=== PATIENT | male | born 1990 | race Caucasian/White ===

== ENCOUNTER 2018-07-30 16:27 | Emergency (ER) | payer OTHER ==
[~2018-07-30] VITALS: Ht 188 cm; Wt 108.9 kg
--- OUTSIDE RECORDS SUMMARY | ~2018-07-30 | XMS | Clinical Summary ---
Demographics + + + | Address | [address] | | | [address] | | | [place] [address] | + + + | Home Phone | | + + + | Preferred Language | Unknown | + + + | Marital Status | Single | + + + | Denominational Affiliation | Unknown | + + + | Race | Unknown | + + + | Ethnic Group | Unknown | + + + Author + + + | Author | [facility] | | | and [place] | + + + | Organization | [facility] | | | and [place] | + + + | Address | Unknown | + + + | Phone | Unavailable | + + + Support + + + + + | Name | Relationship | Address | Phone | + + + + + | None,Per Patient | ECON | 05/14/13 | Unavailable | | | | NA, | | + + + + + Care Team Providers + +------+ + | Care Director Of Manufacturing Operations Name | Role | Phone | + +------+ + PP | Unavailable | + +------+ + Allergies Not on File Current Medications Not on file Active Problems Not on file Social History + +-------+ +--------+------+ | Tobacco Use | Types | Packs/Day | Years | Date | | | | | Used | | + +-------+ +--------+------+ | Never Assessed | | | | | + +-------+ +--------+------+ + + + | Sex Assigned at | Date Recorded | | | | + + + | Not on file | | + + + Plan of Treatment + + + + + | Health Maintenance | Due Date | Last Done | Comments | + + + + + | Vaccine: | | | | | Dtap/Tdap/Td (1 - | 7 | | | | Tdap) | | | | + + + + + | Vaccine: Influenza | | | | | (#1) | 8 | | | + + + + + Results Not on filefrom Last 3 Months Insurance + +--------+ +--------+-------+---------+ | Payer | Benefi | Subscriber | Type | Phone | Address | | | t Plan | ID | | | | | | / | | | | | | | Group | | | | | + +--------+ +--------+-------+---------+ | GOVERNMENT OTHER | GOVERN | [id number] | Indemn | | | | | MENT | | ity | | | | | OTHER | | | | | + +--------+ +--------+-------+---------+ + +--------+ +--------+ + + | Guarantor Name | Accoun | Relation to | Date | Phone | Billing Address | | | t Type | Patient | of | | | | | | | | | | + +--------+ +--------+ + + | MAGGIE TIWARI | Person | Self | [birth year] | Work: | [address] | | | al/Fam | | 1989 | [phone] | [address] [place], | | | [place] | | | [address]: | [place] [address] | | | | | | | | | | | | | [phone] | | | | | | | [phone] | | + +--------+ +--------+ + +"
--- OUTSIDE RECORDS SUMMARY | ~2018-07-30 | XMS | Clinical Summary ---
Demographics + + + | Address | [address] | | | [address] | | | [place] [address] | + + + | Home Phone | | + + + | Preferred Language | Unknown | + + + | Marital Status | Single | + + + | Confucianist Affiliation | Unknown | + + + | Race | Unknown | + + + | Ethnic Group | Unknown | + + + Author + + + | Author | [facility] | | | and [place] | + + + | Organization | [facility] | | | and [...] Team Providers + +------+ + | Care Insole Stiffener Name | Role | Phone | + [...] +--------+-------+---------+ | GOVERNMENT OTHER | GOVERN | [id number] | Indemn | | | | | [...] | | | [address]: | [place] [address] | | | | | | | | | | | | | [phone] | | | | | | | [phone] | | + +--------+ +--------+ + +"
[~2018-07-30 16:27] MED LIST: TYLENOL325 MG PO
[2018-07-30] MEDS ORDERED: PANTOPRAZOLE SO40 MG PO (16:39)
[2018-07-30] MEDS ORDERED: CYCLOBENZAPRINE5 MG PO (17:29)
[2018-07-30] MEDS ORDERED: IBUPROFEN600 MG PO (17:29)
== END 2018-07-30 18:19 | disposition home or self-care (01) ==
LOC: ED 16:27
DX: S16.1XXA Strain of muscle, fascia and tendon at neck level, initial encounter (principal); W18.30XA Fall on same level, unspecified, initial encounter; Z79.899 Other long term (current) drug therapy
CPT/HCPCS: 72040; 99283

== ENCOUNTER 2022-03-16 05:53 | Day surgery (SDC) | payer OTHER ==
[~2022-03-16] VITALS: Ht 193 cm; Wt 127.3 kg
[~2022-03-16 05:53] MED LIST changes: +CYCLOBENZAPRINE5 MG PO; +FLOMAX0.4 MG PO; +IBUPROFEN200 MG; +IBUPROFEN600 MG PO; +NORCO 7.5-3251 EACH PO; +ONDANSETRON ODT8 MG PO; +PANTOPRAZOLE SO40 MG PO; +PEPCID40 MG PO
--- NOTE | 2022-03-16 11:33 | OR ---
[facility] [address] [place], [place] [address] Signed DATE OF OPERATION: 03/16/2022 SURGEON: Kushal Porter MD PREOPERATIVE DIAGNOSES: 1. Mid esophageal dysphagia. 2. Acid reflux and heartburn. 3. Hiatal hernia. 4. Diarrhea. 5. History of alcohol and NSAID use. POSTOPERATIVE DIAGNOSES: 1. Small to moderate sized hiatal hernia (43-39 cm). 2. GE junction at 39 cm. 3. Mild diffuse gastritis. PROCEDURES: EGD with CLOtest and biopsies of the duodenum, pyloric bulb, antrum and GE junction. INDICATIONS: Maggie is a 32-year-old gentleman asked to see me for his upper endoscopy. He said he has had trouble with acid reflux and heartburn for many years. Apparently, he has a hiatal hernia. He has tried Nexium and Prilosec without much help. He is now on Protonix with Pepcid. He cut his alcohol way down. He does have chronic low back pain for which he uses ibuprofen 800 mg twice each day. He has developed mid esophageal dysphagia to solid foods. He has to drink to push the food down. He did have some bloody diarrhea while in the . He remembers undergoing flexible sigmoidoscopy in 2011 and said it was absolutely horrible. He has been for a sleep study with concerns of sleep apnea. He is also a very large man with a full face and heavy chest. He has also had significant posttraumatic stress disorder. Therefore, we asked for monitored anesthesia care, which worked out very nicely for him today. We also send him for a barium swallow. The esophagus is normal in caliber with normal peristalsis. There are no strictures or any extrinsic compressions on the esophagus. He does have moderate to severe reflux during the test. He has a small sliding-type hiatal hernia. His GE junction is patent. In the office, I had given him a pamphlet on upper endoscopy. We reviewed that together in detail. He understands there is risk including, but not limited to gas bloating, crampy abdominal pain, bleeding, perforation requiring surgery, and missed diagnosis. He had expressed understanding and wished to proceed. PROCEDURE NOTE: Electronically Signed By: KUSHAL PORTER MD 03/16/22 1133 PATIENT NAME: MAGGIE TIWARI OPERATIVE REPORT DATE OF : 86 REPORT #: [id number] PHYSICIAN: KUSHAL PORTER MD PCP: SCOOTER KENYON MD REPORT IS CONFIDENTIAL AND NOT TO BE RELEASED WITHOUT AUTHORIZATION [facility] [address] [place], [place] [address] Signed Maggie was taken into our endoscopy suite and placed in the supine semi-recumbent position. He was given monitored anesthesia care to include propofol by our nurse mission coordinator. A bite block was utilized for the case. The adult gastroscope had been introduced and advanced quite readily out into the third portion of the duodenum without difficulty. We took a biopsy of the duodenum because of the history of diarrhea. However, the duodenum and pyloric channel were unremarkable. We took an additional biopsy of the pyloric channel for pathologic review. His stomach showed mild diffuse erythematous changes throughout. We took a biopsy of the antrum for pathologic review as well as CLOtest. Upon retroflexion of the scope, we could easily see his small to moderate sized hiatal hernia. It measured out from 43 cm back to 39 cm. There was no gastric or esophageal varices. There was no stricture. No Meryl-Tracy tear. No Jareth's ulcer. He does have some irritation around the Z-line. We went ahead and took a biopsy in that area. He has no Colon's mucosa. The distal, middle and upper esophagus were unremarkable. After this, the gas was suctioned out and the gastroscope removed. Maggie tolerated the procedure quite well. RECOMMENDATIONS: I will see Maggie back in my office in 7 to 14 days to review his results. If he wants to evaluate this further, he would need 24-hour pH testing and esophageal manometry not available in our area. Kushal Porter MD ALB/MODL /[id number] cc: MD Scooter Martino MD Copies: KUSHAL PORTER MD, MICAIAH MATTHEW MD ~ Electronically Signed By: KUSHAL PORTER MD 03/16/22 1133 PATIENT NAME: MAGGIE TIWARI OPERATIVE REPORT DATE OF : 86 REPORT #: [id number] PHYSICIAN: KUSHAL PORTER MD PCP: SCOOTER KENYON MD REPORT IS CONFIDENTIAL AND NOT TO BE RELEASED WITHOUT AUTHORIZATION
--- NOTE | 2022-03-20 14:51 | PATH ---
[facility] [address] [place], [place] [address] Signed SPECIMEN(S): A DUODENAL BIOPSY SPECIMEN(S): B DUODENAL BULB BIOPSY SPECIMEN(S): C ANTRUM/PYLORUS BIOPSY SPECIMEN(S): D GE JUNCTION BIOPSY SPECIMEN SOURCE: A. DUODENAL BIOPSY B. DUODENAL BULB BIOPSY C. ANTRUM/PYLORUS BIOPSY D. GE JUNCTION BIOPSY CLINICAL HISTORY: Dysphagia, GERD, hiatal hernia. Hx of diarrhea. Post Op: small hiatal hernia, gastritis. FINAL PATHOLOGIC DIAGNOSIS: A. Duodenum, biopsy: - Duodenal mucosa with no histopathologic abnormality. - Negative for increased intraepithelial lymphocytes or villous blunting. - Negative for dysplasia or malignancy. B. Duodenum, bulb, biopsy: - Duodenal mucosa with prominent Mabel's glands, consistent with duodenal bulb. - Denuded surface epithelium, see comment. - Negative for dysplasia or malignancy. C. Stomach, antrum/pylorus, biopsy: - Antral mucosa with minimal chronic, inactive gastritis. - Negative for Helicobacter organisms on HE stain. - Negative for dysplasia or malignancy. D. Gastroesophageal junction, biopsy: - Reflux esophagitis. - Negative for intestinal metaplasia, dysplasia, or malignancy. COMMENT: Regarding specimen B: Multiple additional deeper levels were examined. The vast majority of the surface epithelium is denuded, preventing histologic interpretation. NAL:cml:C2NR MICROSCOPIC EXAMINATION: Histologic sections of all submitted blocks are examined by light microscopy. PATIENT NAME: MAGGIE TIWARI [facility] DATE OF : 86 REPORT #: [id number] PHYSICIAN: BETI JOAQUIN PCP: SCOOTER KENYON MD REPORT IS CONFIDENTIAL AND NOT TO BE RELEASED WITHOUT AUTHORIZATION [facility] [address] [place], [place] [address] Signed These findings, together with the gross examination, support the pathologic diagnosis. GROSS DESCRIPTION: Four specimens are received in four containers, labeled "CP." A. The specimen, labeled "CP, 1," and designated on the requisition "duodenum," is received in formalin and consists of one smith soft tissue fragment(s) that measure 0.3 cm in greatest dimension. The specimen is entirely submitted in cassette (A1). B. The specimen, labeled "CP, 2," and designated on the requisition "duodenal bulb," is received in formalin and consists of one smith soft tissue fragment(s) that measure 0.3 cm in greatest dimension. The specimen is entirely submitted in cassette (B1). C. The specimen, labeled "CP, 3," and designated on the requisition "antrum/pylorus," is received in formalin and consists of one smith soft tissue fragment(s) that measure 0.3 cm in greatest dimension. The specimen is entirely submitted in cassette (C1). D. The specimen, labeled "CP, 4," and designated on the requisition "GE junction," is received in formalin and consists of one smith soft tissue fragment(s) that measure 0.2 cm in greatest dimension. The specimen is entirely submitted in cassette (D1). AT(under the direct supervision of a pathologist) The Gross Description was prepared using a voice recognition system. The report was reviewed for accuracy; however, sound-alike word errors, addition and/or deletions may occur. If there is any question about this report, please contact Client Services. PERFORMING LABORATORY: The technical component was performed by [facility], [address] [place] [id number] (CLIA# [id number]). Professional interpretation was performed by [facility], [address] [address], [place] [address] (CLIA# [id number]). Diagnostician: Ceci Elliott MD Pathologist Electronically Signed 03/20/2022 Copies: PATIENT NAME: TEMAGGIEDayana ANDRADE PATHOLOGY DATE OF : 86 REPORT #: [id number] PHYSICIAN: BETI PATHOLOGY PCP: SCOOTER KENYON MD REPORT IS CONFIDENTIAL AND NOT TO BE RELEASED WITHOUT AUTHORIZATION [facility] [address] [facility] [place], [place] [address] Signed ~ PATIENT NAME: TIWARIMAGGIE PATHOLOGY DATE OF : 86 REPORT #: [id number] PHYSICIAN: BETI PATHOLOGY PCP: SCOOTER KENYON MD REPORT IS CONFIDENTIAL AND NOT TO BE RELEASED WITHOUT AUTHORIZATION
== END 2022-03-16 08:30 | disposition home or self-care (01) ==
LOC: OPS 05:53 → DS 05:53 → OPS 07:30
PROVIDERS: ATTEND Colon & Rectal Surgery
PROC: 0DB78ZX Excision of Stomach, Pylorus, Via Natural or Artificial Opening Endoscopic, Diagnostic (ICD-10-PCS; 2022-03-16)
PROC: 0DB48ZX Excision of Esophagogastric Junction, Via Natural or Artificial Opening Endoscopic, Diagnostic (ICD-10-PCS; 2022-03-16)
PROC: 0DB98ZX Excision of Duodenum, Via Natural or Artificial Opening Endoscopic, Diagnostic (ICD-10-PCS; principal; 2022-03-16 07:30)
DX: K29.50 Unspecified chronic gastritis without bleeding (principal); K21.00 Gastro-esophageal reflux disease with esophagitis, without bleeding; K44.9 Diaphragmatic hernia without obstruction or gangrene; E03.9 Hypothyroidism, unspecified; Z88.8 Allergy status to other drugs, medicaments and biological substances
CPT/HCPCS: 00731; 36415; 87077; 88305; J2001; J2405; J2704; J7121